=== PATIENT | male | born 1995 | race Two or more races ===

== ENCOUNTER 2019-01-25 21:28 | Emergency (ER) | payer SELFPAY ==
[~2019-01-25] VITALS: Ht 177.8 cm; Wt 108.9 kg
[2019-01-25 21:40] VITALS: BP 109/78
[2019-01-25] MEDS ORDERED: ZYPREXA5 MG ORAL (21:40)
--- NOTE | 2019-01-25 21:40 | NUR ---
ED Nurse Note: Patient walked into ED after smoking marijuana prior to arrival, when asked how much patient smoked, patient states that "he smoked alot" patient does not have any plans to harm others or harm himself, states that he just feels anxious. patient placed in a room, will continue to monitor
--- NOTE | 2019-01-25 22:30 | NUR ---
ED Nurse Note: Patient has ate 3 sandwiches.
--- NOTE | 2019-01-25 22:47 | Emergency Room Report ---
History of Present Illness General Chief Complaint: Behavioral Complaint Source: Patient Present Illness HPI Is a 23-year-old male with history of schizophrenia. He presents with chief complaint of hearing voices. He said that he smokes marijuana because someone and said that it may help with his schizophrenia. He said that he did not help. After smoking he said hear more voices. Voices told him to spit on people. He has not done that. He denies suicidal thoughts homicidal thought. Denies any other complaint. Did not take his Zyprexa today. Allergies: Coded Allergies: No Known Allergies (Unverified , 01/25/19) Patient History Past Medical History: see triage record, old chart reviewed, psych hx Past Surgical History: none Pertinent Family History: none Social History: Reports: smoking Immunizations: other Reviewed Nursing Documentation: PMH: Agreed; PSxH: Agreed Nursing Documentation-PMH Past Medical History: No Stated History Review of Systems Eye: Denies: eye pain, blurred vision ENT: Denies: ear pain, nose congestion, throat swelling Respiratory: Denies: cough, shortness of breath Cardiovascular: Denies: chest pain, palpitations Gastrointestinal: Denies: abdominal pain, diarrhea, nausea, vomiting Musculoskeletal: Denies: back pain, joint pain Skin: Denies: rash Neurological: Denies: headache, numbness Endocrine: Denies: increased thirst, increased urine Hematologic/Lymphatic: Denies: easy bruising All Other Systems: negative except mentioned in HPI Physical Exam Vital Signs Date Time Temp Pulse Resp B/P (MAP) Pulse Ox O2 Delivery O2 Flow Rate FiO2 01/25/19 21:33 97.9 170 16 109/78 (88) 97 Room Air Vitals tachycardia. Repeat is 80 Sp02 EP Interpretation: reviewed, normal General Appearance: well appearing, no apparent distress, alert Head: normocephalic, atraumatic Eyes: bilateral eye PERRL, bilateral eye EOMI ENT: hearing grossly normal, normal pharynx Neck: full range of motion, supple, no meningismus Respiratory: chest non-tender, lungs clear, normal breath sounds Cardiovascular #1: regular rate, rhythm, no murmur Gastrointestinal: normal bowel sounds, non tender, no mass, no organomegaly, no bruit, non-distended Musculoskeletal: back normal, gait/station normal, normal range of motion Psychiatric: mood/affect normal Medical Decision Making Diagnostic Impression: Primary Impression: Schizophrenia, acute undifferentiated ER Course Patient with acute schizophrenia. He is calm. Eating several sandwiches here. No evidence of any agitation. No criteria for 5150. I gave him a dose of Zyprexa here. Will discharge home. Last Vital Signs Date Time Temp Pulse Resp B/P (MAP) Pulse Ox O2 Delivery O2 Flow Rate FiO2 01/25/19 21:33 97.9 170 16 109/78 (88) 97 Room Air Status: improved Disposition: HOME, SELF-CARE Condition: Stable Referrals: NOT CHOSEN IPA/MD,REFERRING (PCP) Patient Instructions: Self-Destructive Behavior Additional Instructions: Take your Zyprexa. Follow-up with your mental health doctor within a week. Return if worse. Armando Truong MD Jan 25, 2019 22:47
[2019-01-25 22:50] VITALS: BP 115/72
--- NOTE | 2019-01-25 22:50 | NUR ---
ER DISCHARGE NOTE: Patient is cleared to be discharged per ERMD, pt is aox4, on room air, with stable vital signs. pt was given dc instructions, pt was able to verbalize understanding, pt id band removed without complications. pt is able to ambulate with steady gait. pt took all belongings.
== END 2019-01-25 22:50 | disposition home or self-care (01) ==
LOC: EMR 22:16
DX: F23 Brief psychotic disorder (principal); F17.200 Nicotine dependence, unspecified, uncomplicated
CPT/HCPCS: 99282